=== PATIENT | male | born 1955 | race Caucasian/White ===

== ENCOUNTER 2017-01-12 14:35 | Inpatient (IN) ==
[2017-01-12] MEDS ORDERED: Aspirin 325 MG TABLET PO ONE (15:00)
[2017-01-12] MEDS ORDERED: *HR* Ticagrelor 90 MG TABLET PO ONE (15:04)
--- NOTE | 2017-01-12 15:08 | Emergency Department Note ---
Disposition Clinical Impression: ST elevation myocardial infarction (STEMI) Disposition: Admitted As Inpatient Condition: Fair Forms: ED Satisfaction Letter Time of Disposition: 15:23 Chest Pain HPI - General Chief Complaint: ED Chest Pain Stated Complaint: chest pain, JAYDEN Time Seen by Provider: 01/12/17 14:59 Source: patient, family Limitations: no limitations Vital Signs Reviewed: Yes Nursing Notes Reviewed: Yes - History of Present Illness HPI Narrative: 61-year-old male presents with chest pain. Patient has a history of coronary artery disease with last stent placed in 2007. He has been noncompliant with his aspirin and Plavix. Yesterday evening he had the onset of centralized chest discomfort. He thought that it was gas and it went away after he took some Tums. He was outside working, but not doing anything very strenuous this morning at 12:30 and had a repeat of this chest pain. He said it was very heavy pressure-like feeling that was crushing in his chest. He got diaphoretic, nauseated and felt like he was going to pass out. He states he felt similar to this with his last CO. He has not taken any medication today and he states the pain has been consistent for the last 3 hours , so he decided to seek care. He also has a history of hypertension and does continue to smoke but is not compliant with any of his medications due to cost Severity scale (1-10): 8 - Related Data Allergies Allergy/AdvReac Type Severity Reaction Status Date / Time azithromycin [From Zithromax] AdvReac Unresponsiv Verified 01/12/17 14:36 e Constitutional: Denies: fever Eyes: Denies: vision change Cardiovascular: Reports: chest pain Respiratory: Reports: dyspnea. Denies: cough Gastrointestinal: Reports: nausea Musculoskeletal: Denies: back pain Integumentary: Denies: rash Neurological: Reports: weakness (all over). Denies: headache Chest Pain PMH - Past Medical History Medical history: Reports: hypertension, myocardial infarction Psychiatric history: Reports: no psych history - Social History Smoking Status: Current every day smoker Alcohol use: Reports: none Drug use: Reports: none Physical Exam - General Limitations: no limitations General appearance: alert, in no apparent distress - Head Head exam: atraumatic, normocephalic, normal inspection - Chest Chest inspection: Present: normal inspection, symmetric chest wall rise - Respiratory Respiratory exam: Present: normal lung sounds bilaterally - Cardiovascular Cardiovascular exam: Present: regular rate, normal rhythm, normal heart sounds - Abdominal Exam Abdominal exam: Present: soft, Non-Tender. Absent: tenderness, distention, guarding, rebound, rigidity - Extremities Exam Extremities exam: Present: normal inspection, full ROM. Absent: tenderness, pedal edema - Neurological Exam Neurological exam: Present: alert, oriented X3 - Psychiatric Psychiatric exam: Present: normal affect, normal mood - Skin Skin exam: Present: warm, dry, intact, normal color, other (Patient no longer diaphoretic) Course Course Narrative: 61-year-old male presenting with chest pain. EKG is concerning for developing CO in leads V4, V5 and V6. We will consult the on-call interventional S2 determine if any intervention is indicated at this time. Otherwise, we have started, labs, chest x-ray. We will repeat EKG. - Reevaluation(s) Reevaluation #1: Dr. Naidu to bedside. We will take to catheter lab now. We will add heparin and going down to catheter lab now. Time: 15:22 - Consultations Consultation #1: Spoke with on-call wash house supervisor, Dr Naidu. Discussed the patient and concerning symptoms, and borderline EKG. We will fax EKG to the Lasting Machine Operator Bed. We will go ahead and order aspirin, nitroglycerin and Brilinta. Will call us back if any intervention is noted. We will repeat EKG a few minutes to make sure this is not involving into an acute CO. Time: 15:05 Vital Signs Temperature 97.4 F L 01/12/17 14:36 Pulse Rate 80 01/12/17 14:36 Respiratory Rate 16 01/12/17 14:36 Blood Pressure 170/107 01/12/17 14:36 O2 Sat by Pulse Oximetry 98 01/12/17 14:36 Temperature 97.4 F L 01/12/17 14:36 Pulse Rate 81 01/12/17 15:20 Respiratory Rate 18 01/12/17 15:20 Blood Pressure 143/73 01/12/17 15:20 O2 Sat by Pulse Oximetry 95 01/12/17 15:20 Oxygen Delivery Oxygen Delivery Room Air Chest Pain - MDM Narrative Medical decision making narrative: I examined this patient and my medical decision-making was reviewed with the HIGH PRESSURE BOILER OPERATOR/PA/Advanced Practice Nurse/Resident Physician. I agree with the documented findings, disposition and treatment plan as described except to the extent set forth below. Patient seen and evaluated today by Dr. Garcia and myself, I agreed his evaluation and management plan, supervised care the patient 's stay. Patient comes in today with chest pain that he had diaphoresis earlier he is not diaphoretic now but still having pain. History CAD in the past. He does have elevation in his precordial leads. Not quite enough for true STEMI. We started off with nitroglycerin and we spoke with actor Naidu, he is on for cardiology, he has come down to see the patient, repeat EKG still has this elevations was taken to the Lasting Machine Operator Bed impression this time is ACS. Patient' s going to catheter lab still pending labs. Patient's critical care time x-ray separately billable procedures is 20 minutes per Chest X-Ray 01/12/17 14:39 IMPRESSION: No acute cardiopulmonary abnormality. D/ / Dwain Ley MD / Dwain Ley MD Interpreting Provider: Dwain Ley MD - Medical Records Medical records reviewed: Yes I reviewed the patient's medical records. - Lab Data Lab results reviewed: Yes I reviewed the patient's lab results. Result diagrams: 01/12/17 15:05 Lab Results 01/12/17 Range/Units 15:05 WBC 12.9 H (4.3-11.1) K/mcL RBC 5.96 H (4.19-5.50) M/mcL Hgb 17.5 H (12.9-16.9) g/dL Hct 53.1 H (37.5-50.1) % MCV 89.1 (83.0-100.0) fL MCH 29.4 (28.0-33.3) pg MCHC 33.0 (31.6-35.5) g/dL RDW 13.6 (11.5-14.5) % Plt Count 232 (140-400) K/mcL MPV 10.7 (9.4-12.4) fL Immature Gran % 0.5 (0-4) % Seg Neutrophils % 78.0 % Lymphocytes % 13.5 % Monocytes % 6.7 % Eosinophils % 1.0 % Basophils % 0.3 % Neutrophils # 10.1 H (1.6-8.9) K/mcL Lymphocytes # 1.8 (0.6-4.6) K/mcL Monocytes # 0.9 (0.0-1.3) K/mcL Eosinophils # 0.1 (0.0-0.6) K/mcL Basophils # 0.0 (0.0-0.2) K/mcL - Radiology Data Radiology results reviewed: Yes I reviewed the patient's radiology results. - EKG Data EKG attestation: Yes I reviewed and interpreted this EKG. EKG results narrative: Sinus rhythm, rate 68, AZ interval 175, QRS 107, QTC 410, left axis deviation, [address] segment elevation in lead V5 and V6.
[2017-01-12] MEDS: Nitroglycerin 0.4 MG TAB.SUBL SL PRN ×3 (15:15→15:25)
[2017-01-12 15:16] LABS: Basophils % 0.3 %; Eosinophils # 0.1 K/mcL (0.0-0.6); Hematocrit 53.1 % (37.5-50.1); Hemoglobin 17.5 g/dL (12.9-16.9); Immature Granulocytes % 0.5 % (0-4); Lymphocytes # 1.8 K/mcL (0.6-4.6); Lymphocytes % 13.5 %; Mean Corpuscular Hemoglobin 29.4 pg (28.0-33.3); Mean Corpuscular Volume 89.1 fL (83.0-100.0); Mean Platelet Volume 10.7 fL (9.4-12.4); Monocytes # 0.9 K/mcL (0.0-1.3); Monocytes % 6.7 %; Neutrophils # 10.1 K/mcL (1.6-8.9); Platelet Count 232 K/mcL (140-400); Red Blood Count 5.96 M/mcL (4.19-5.50); Red Cell Distribution Width 13.6 % (11.5-14.5)
[2017-01-12 15:20] LABS: INR 1.1; Prothrombin Time 11.6 Seconds (9.4-12.1)
[2017-01-12] MEDS ORDERED: *HR* Heparin 5,000 UNIT/ML VIAL IVP ONE (15:22)
[2017-01-12 15:23] LABS: Activated Partial Thrombo Time 31.6 Seconds (26.0-36.0)
[2017-01-12 15:28] LABS: BUN/Creatinine Ratio 12 (6-26); Blood Urea Nitrogen 13 mg/dL (8-26); Calcium 10.5 mg/dL (8.6-10.8); Carbon Dioxide 25 mEq/L (19-29); Chloride 101 mEq/L (98-109); Glucose 111 mg/dL (70-99); Osmolality,Calculated 285 (280-300); Potassium 3.6 mEq/L (3.5-4.5); Sodium 137 mEq/L (136-145); eGFR For African Americans > 60 (> 60); eGFR For Non-African Americans > 60 (> 60)
[2017-01-12] MEDS ORDERED: 0.9 % Sodium Chloride 1,000 ML IVC ONE (15:28)
[2017-01-12] MEDS ORDERED: Heparin 25,000 UNIT/500 ML D5W 25,000 UNIT/500 ML MLS IVC SCH (15:30)
[2017-01-12] MEDS ORDERED: Ondansetron 4 MG/2 ML VIAL IVP PRN (15:34)
[2017-01-12] MEDS ORDERED: *HR* Morphine 2 MG/ML SYRINGE IVP PRN (15:34)
[2017-01-12] MEDS ORDERED: Heparin 1,000 UNITS/500 mL NS 500 ML ONE (15:40)
[2017-01-12] MEDS ORDERED: Nitroglycerin 1,000 MCG/10 ML VIAL IV ONE (15:40)
[2017-01-12] MEDS ORDERED: Verapamil 5 MG/2 ML VIAL ONE (15:40)
[2017-01-12] MEDS ORDERED: *HR* Heparin 10,000 UNIT/10 ML VIAL ONE (15:40)
[2017-01-12] MEDS ORDERED: 0.9 % Sodium Chloride 1,000 ML ONE ×2 (15:40→15:53)
--- NOTE | 2017-01-12 15:42 | Pre-Sedation Evaluation ---
Pre-sedation evaluation - Pre-sedation checklist Date of procedure: 01/12/17 Procedure: [facility] Recent Vitals: Last Vital Signs Temp 97.4 F L 01/12/17 14:36 Pulse 75 01/12/17 15:39 Resp 16 01/12/17 15:39 BP 119/78 01/12/17 15:39 Pulse Ox 98 01/12/17 15:39 H&P (including ROS) documented in medical record: Yes Previous reaction to sedatives/anesthetics: No Dietary Status: NPO after Midnight Airway Assessment: Patient can open mouth completely, TMJ function normal ASA Classification *see protocol: CLASS II-Mild systemic disease Plan of Care: Pt appropriate candidate for procedure/moderate/conscious sedation , Risks/benefits of procedure/sedation discussed w/ patient/family
--- NOTE | 2017-01-12 15:45 | Cardiology History & Physical ---
Date of Encounter: 01/12/17 Time of Encounter: 15:40 Assessment and Plan (1) ST elevation myocardial infarction (STEMI) Status: Acute Aspirin, brilinta, heparin given in ED. Emergent LHC to delineate any coronary disease amenable for intervention. A/R/B discussed with him and he wishes to proceed. EF assessment will be completed and cardiac rehab consulted. The assessment and plan as outlined above was discussed with the patient and/or family members who expressed understanding and agreement. All questions were answered. Qualifiers: Involved coronary artery: other coronary artery Qualified Code(s): I21.29 - ST elevation (STEMI) myocardial infarction involving other sites History of Present Illness Chief complaint: chest pain HPI: Mr. Moe is a 61 year old male with history of CAD s/p PCI LAD and RCA with last LHC 2012 presents with chest discomfort, moderate intensity, starting around 1230 today which has minimally improved with aspirin and nitroglycerin. It was associated with diaphoresis. It is similar to his previous anginal symptoms. 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 Past Med Surg Social Fam HX - Past Medical History Medical history: hypertension, myocardial infarction Psychiatric history: no psych history - Social History Smoking Status: Current every day smoker Smokeless Tobacco Status: No Alcohol use: none Drug use: none Medications and Allergies No Known Home Drugs 01/12/17 [History] Allergies azithromycin [From Zithromax] Adverse Reaction (Verified 01/12/17 14:36) Unresponsive All Systems Review: A 10-system review of systems was performed and is negative for pertinent findings except as documented above in the HPI. - Constitutional Constitutional: no chills, no fever(s) - EENT Eyes: no blurred vision, no loss of vision Nose, mouth and throat: no bleeding gums, no epistaxis - Cardiovascular Cardiovascular: chest pain at rest, chest pain with exertion - Respiratory Respiratory: no hemoptysis, no wheezing - Gastrointestinal Gastrointestinal: no hematemesis, no hematochezia - Genitourinary Genitourinary: no dysuria, no hematuria - Musculoskeletal Musculoskeletal: no back pain, no myalgias - Integumentary Integumentary: no erythema, no rash - Neurological Neurological: no focal weakness, no syncope - Psychiatric Psychiatric: no anxiety, no depression - Hematological/Lymphatic Hematologic/Lymphatic: no easy bleeding, no easy bruising Physical Examination Vital Signs, Last 4 Hours Temp Pulse Resp BP Pulse Ox 01/12/17 15:39 75 16 119/78 98 01/12/17 15:30 90 18 139/76 97 01/12/17 15:20 81 18 143/73 95 01/12/17 15:00 74 16 182/131 100 01/12/17 14:36 97.4 F L 80 16 170/107 98 General: Conversant, Other (mild distress) HEENT: Atraumatic Neck: No JVD Cardiac: Reg Rate and Rhythm Lungs: Normal Breath Sounds Neuro: Alert and responsive Abdomen: Soft Skin: No rashes noted on visualized skin Extremities: No Edema Results 01/12/17 15:05 01/12/17 15:05 Lab Results 01/12/17 01/12/17 01/12/17 15:05 15:05 15:05 WBC 12.9 H Hgb 17.5 H Hct 53.1 H Plt Count 232 INR 1.1 APTT 31.6 Sodium 137 Potassium 3.6 Chloride 101 Carbon Dioxide 25 BUN 13 Creatinine 1.09 Glucose 111 H Calcium 10.5 - EKG Interpretation EKG results cardiology: personally reviewed, sinus rhythm (lateral current of injury)
[2017-01-12] MEDS ORDERED: *HR* Midazolam HCl 2 MG/2 ML VIAL ONE (15:52)
[2017-01-12] MEDS ORDERED: *HR* FentaNYL (PF) 100 MCG/2 ML VIAL ONE (15:53)
--- NOTE | 2017-01-12 15:58 | Event Note ---
Date of Encounter: 01/12/17 Time of Encounter: 15:35 - Cardiology Event Note STEMI alert initiated off of second EKG, concerning for lateral current of injury. Patient continues to be symptomatic.
[2017-01-12] MEDS ORDERED: Tirofiban 5 MG/100ML 5 MG/100 ML BAG IV ONE (16:37)
[2017-01-12] MEDS ORDERED: Tirofiban 12.5 MG/250ML 12.5 MG/250 ML BAG IVC SCH (16:45)
--- NOTE | 2017-01-12 16:56 | Invasive Diagnostic Lab Proc ---
Name: Neville Moe Date of Study: 01/12/2017 Date: 1955 Ht: 76.0in Medical Record#: [id number] Age: 61 Wt: 220.02lb Gender: Male BSA: 2.31 Order #: [id number] BMI: 26.79 Physicians Procedure Physician: Usama Naidu MD, [facility] Referring MD: Referring MD: Staff Name Position Time In Sites, Madalyn RT (R) Monitor 03:57 PM Dwain Acevedo RT (R) Scrub 03:57 PM Anuradha Wiggins RN Market Specialist 03:57 PM Indications Indication STEMI Procedures Performed Procedure PRQ CARD REVASC WI 1 VSL L HRT ARTERY/VENTRICLE ANGIO Pre-Procedure Checklist Informed consent is complete signed and on chart. H\\T\\P is on chart. ID band is on and ID verified with patient. Patient NPO for procedure The procedure was described for the patient and questions were answered. ECG is on chart. Plan of Care Patient will tolerate the procedure without complications. Adequate level of comfort will be maintained. Hemodynamics will remain stable Patient will recover from procedure without complications. Respiratory function will be maintained. Cardiac rhythm will remain stable. Patient temperature will be maintained. Patient and/or family have verbalized understanding of the procedure. Patient Education Intravenous Access Time IV Size Location DC'd Fluid/Drip Rate Units RN 18g 1 1/4" Patent On Arrival Lt Antecubital 0.9NaCl 25 ml/hr Anuradha Wiggins RN 18g 1 1/4" Patent On Arrival Rt Antecubital Anuradha Wiggins RN Allergies NKDA azithromycin Vital Signs Time BP (mmHg) HR (bpm) O2 Sat. RR (bpm) LOC 04:05 PM 139 / 85 63 96 % 12 04:08 PM 137 / 82 61 98 % 9 04:11 PM 139 / 77 64 100 % 7 04:14 PM 138 / 75 63 98 % 20 04:17 PM 134 / 72 63 98 % 20 04:20 PM 114 / 69 69 98 % 17 04:23 PM 124 / 67 52 98 % 19 04:26 PM 116 / 70 66 98 % 18 04:29 PM 118 / 73 79 98 % 18 04:32 PM 125 / 64 63 99 % 16 04:35 PM 124 / 73 60 99 % 04:38 PM 116 / 73 % Procedural Medications Time Medication Dose Units Method Given By 03:58 PM Oxygen 2 L/min nasal cannula Anuradha Wiggins RN 04:05 PM Lidocaine 2% 20 ml Subcutaneous Usama Naidu MD, FACC 04:07 PM Versed 2 mg Intravenous Anuradha Wiggins RN 04:07 PM Fentanyl 25 mcg Intravenous Anuradha Wiggins RN 04:10 PM Fentanyl 50 mcg Intravenous Anuradha Wiggins RN 04:21 PM Heparin 2000 units Intravenous Anuradha Wiggins RN 04:39 PM Aggrastat Bolus: 50 ml Intravenous Anuradha Wiggins RN 04:39 PM Aggrastat 5mg/100ml 18 ml Intravenous Anuradha Wiggins RN ASA Classification: Emergent Procedure: ASA score is assumed Karthikeyan Score Preprocedure Postprocedure Activity 2- Moves 4 extremities sustained head lift Activity 2- Moves 4 extremities sustained head lift Circulation 2- SBP +/= 20 points of pre-anesthetic level Circulation 2- SBP +/= 20 points of pre-anesthetic level Consciousness 2- Awake and alert oriented x 3 Consciousness 2- Awake and alert oriented x 3 O2 Saturation 2- Able to maintain O2 satruation of 92% on room air O2 Saturation 2- Able to maintain O2 satruation of 92% on room air Respiratory 2- Able to deep breathe and cough well Respiratory 2- Able to deep breathe and cough well Total Score 10 Total Score 10 Contrast Agent: Isovue Diagnostic Contrast: 142 ml Total Contrast: 142 ml Fluoro Dose: 514 mGy Activated Clotting Time Time Seconds to Clot 04:21 PM 205 04:32 PM 217 Procedure Log Time Note Enter By 03:54 PM CathStat 03:57 PM 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 to general labor forklift operator 1 at 15:57 tsites 03:57 PM Madalyn Velazquez RT (R) Position: Monitor Time in: 15:57 tsites 03:57 PM Dwain Acevedo RT (R) Position: Scrub Time in: 15:57 tsites 03:57 PM Anuradha Wiggins RN Position: Market Specialist Time in: 15:57 tsites 03:58 PM Patient charges- Angio tray pack, Navilyst 3mm J, Pulse Oximetry and ACIST tubing and transducer tsites 03:58 PM Case Delayed No tsites 03:58 PM Meet and greet completed tsites 03:58 PM Time: 15:58 Oxygen on at 2 L/min per nasal cannula by Anuradha Wiggins RN tsites 04:04 PM Procedure start 16:04 tsites 04:04 PM Time out performed according to hospital policy tsites 04:04 PM Vitals capture started with the following parameters, Patient=Adult, Interval=3 min, Initial Ssgiemfo=530 mmHg, Deflation Rate=5 mmHg, Cuff placed on Right Arm 04:04 PM Recorded ECG: HR=65 Condition=Condition 1 04:05 PM Time: 16:06 20 ml Lidocaine 2% to right groin Subcutaneous Given by Usama Naidu MD, [facility] tsites 04:05 PM Clinical Presentation: STEMI or equivalent tsites 04:05 PM Access obtained by percutaneous puncture. 6Fr 10cm Terumo [place] sheath placed in right Femoral artery. [id number] tsites 04:05 PM PCI Status Emergency tsites 04:05 PM PCI Indication: Immediate PCI for STEMI tsites 04:05 PM HR=63 bpm, QKAB=685/85 mmhg, SpO2=96 %, Resp=12 B/min 04:05 PM 6Fr CLS 3.5 Runway guide catheter was used to cannulate the PCI vessel successfully. reused? No tsites 04: PM 0.035 145cm Navilyst 3mmJ wire [id number] tsites 04:06 PM Inflation device was opened. tsites 04:07 PM Recorded Pressure: Ao, HR=70, Condition=Condition 1 (Aorta) Ao 118/86/101 04:07 PM Time: 16:07 Versed 2 mg Intravenous Given by Anuradha Wiggins RN ts 04:08 PM Time: 16:07 Fentanyl 25 mcg Intravenous Given by Anuradha Wiggins RN tsites 04:08 PM HR=61 bpm, VWFP=108/82 mmhg, SpO2=98 %, Resp=9 B/min 04:08 PM 2.0 mm x 12 mm Emerge Monorail balloon across target lesion- successful. reused? No tsites 04:08 PM Balloon inflated @ 10 saeed for 12 seconds tsites 04:08 PM Balloon inflated @ 14 saeed for 10 seconds tsites 04:10 PM Time: 16:10 Fentanyl 50 mcg Intravenous Given by Anuradha Wiggins RN tsites 04:10 PM Balloon catheter removed intact. tsites 04:10 PM 2.5mm x 20mm Synergy drug-eluting stent across target lesion- successful Lot #[id number] tsites 04:11 PM Stent deployed @ 12 saeed for 14 seconds tsites 04:11 PM HR=64 bpm, SQWU=322/77 mmhg, GxX4=204 %, Resp=7 B/min 04:13 PM Stent delivery system removed intact. tsites 04:13 PM 2.75 mm x 15mm NC Trek Rx balloon across target lesion- successful. reused? No tsites 04:13 PM Recorded Pressure: Ao, HR=75, Condition=Condition 1 (Aorta) Ao 116/95/105 04:13 PM Balloon inflated @ 16 saeed for 18 seconds tsites 04:14 PM Balloon inflated @ 16 saeed for 9 seconds tsites 04:14 PM HR=63 bpm, KCMV=909/75 mmhg, SpO2=98.0 %, Resp=20 B/min 04:14 PM Coronary Dominance: right tsites 04:14 PM Lesion found in Proximal LAD. Pre Stenosis: 60 Pre GREGORY Flow: tsites 04:14 PM Lesion found in 1st Marginal. Pre Stenosis: 100 Pre GREGORY Flow: tsites 04:15 PM Balloon inflated @ 18 saeed for 14 seconds tsites 04:17 PM HR=63 bpm, GMTV=180/72 mmhg, SpO2=98 %, Resp=20 B/min 04:18 PM Proximal Left Anterior Descending Coronary Artery with 60% stenosis. If graft is supplying this territory, 0 % stenosis. tsites 04:18 PM Circumflex, Obtuse Marginal, Left Posterior Descending, and Left Posterolateral Coronary Arteries with 100 % stenosis. If graft is supplying this area, 0 % stenosis tsites 04:18 PM ACT drawn tsites 04:20 PM HR=69 bpm, JKQF=390/69 mmhg, SpO2=98 %, Resp=17 B/min 04:20 PM 2.0x12 balloon reinserted tsites 04:21 PM At 16:21 the ACT was 205 seconds. tsites 04:22 PM Time: 16:21 Heparin 2000 units Intravenous Given by Anuradha Wiggins RN tsites 04:22 PM Balloon inflated @ 6 saeed for 9 seconds tsites 04:23 PM HR=52 bpm, JRCL=214/67 mmhg, SpO2=98 %, Resp=19 B/min 04:23 PM Balloon catheter removed intact. tsites 04:23 PM Guide wire removed intact. tsites 04:24 PM wire reinserted catheter removed tsites 04:24 PM 5Fr FR 4 catheter inserted over the wire [facility] tsites 04:25 PM RCA angiography performed in multiple views. tsites 04:26 PM Recorded Pressure: Ao, HR=74, Condition=Condition 1 (Aorta) Ao 96/83/90 04:26 PM HR=66 bpm, TYKO=198/70 mmhg, SpO2=98.0 %, Resp=18 B/min 04:26 PM wire reinserted catheter removed tsites 04:26 PM 5Fr Pigtail catheter inserted over the wire DNC tsites 04:27 PM Catheter selectively placed in left ventricle tsites 04:27 PM Bolus angiogram of left Ventricle complete: 10 ml/sec for a total of 30 mls tsites 04:27 PM Recorded Pressure: LV, HR=67, Condition=Condition 1 (Left Ventricle) LV 102/20/24 04:28 PM Recorded Pressure: LV, Ao, HR=64, Condition=Condition 1 (Left Ventricle) LV 111/25/27, (Aorta) Ao 95/67/80 04:28 PM wire reinserted catheter removed tsites 04:28 PM Bolus angiogram of right Femoral complete: 2 ml/sec for a total of 4 mls tsites 04:29 PM HR=79 bpm, JYRU=592/73 mmhg, SpO2=98.0 %, Resp=18 B/min 04:30 PM ACT drawn tsites 04:30 PM Procedure completed at 16:30 tsites 04:30 PM Sign out completed: Radiation Dose 514 mGy Fluoro Time: 5.1 Isovue 370 - 500ml contrast 142 ml given by Usama Naidu MD, [facility]. Complications: NoneCardiac Rehab Consult needed: YesConfirmed administered medications: Yes tsites 04:30 PM Isovue 370 - 500ml,1 Bottle(s) used. tsites 04:30 PM Sheath left in place to be pulled on floor/holding areaV+Pad tsites 04:32 PM Post ECG NSR tsites 04:32 PM HR=63 bpm, DJNU=789/64 mmhg, SpO2=99 %, Resp=16 B/min 04:32 PM Post Blood Pressure 125/64 tsites 04:32 PM 16:32 Post Pulses Bilateral DP \\T\\ PT 1+ tsites 04:33 PM At 16:32 the ACT was 217 seconds. tsites 04:33 PM Information taught Cardiac Cath and PCI tsites 04:33 PM Education needs Procedure, Plan of Care, and Responsibilities of Patient in Care tsites 04:33 PM Learning barriers :None tsites 04:33 PM Education Methods Verbal tsites 04:33 PM Education evaluation Able to repeat information tsites 04:33 PM Site status No bleeding/hematoma - Rt Groin as reported by Dwain Acevedo RT (R) at 16:33 tsites 04:33 PM Opsite applied tsites 04:33 PM Plavix, Effient or Brilinta given Yes in ER tsites 04:33 PM Delay to floor No tsites 04:33 PM no family at this time tsites 04:35 PM HR=60 bpm, AAEL=346/73 mmhg, SpO2=99 % 04:36 PM Patient out of room: 16:36 tsites 04:38 PM UWPS=874/73 mmhg 04:39 PM Report given to Anuradha MALAVE Pt taken to ICU Room #1. 16:39 tsites 04:39 PM Time: 16:39 Aggrastat Bolus: 50 ml Intravenous Given by Anruadha Wiggins RN Brady pump tsites 04:40 PM Time: 16:39 Aggrastat 5mg/100ml 18 ml Intravenous Given by Anuradha Wiggins RN Brady pump tsites 04:41 PM Vitals capture stopped. 04:46 PM Lesion found in 1st Diagonal. Pre Stenosis: 100 Pre GREGORY Flow: 0: No Flow/No perfusion tsites 04:48 PM Lesion found in Proximal RCA. Pre Stenosis: 80 Pre GREGORY Flow: tsites 04:50 PM Right Coronary, Right Posterior Descending Arteries with Right Posterolateral and Acute Marginal branches with 80 % stenosis. If graft is supplying this area, 0 % stenosis tsites 04:51 PM Mid/Distal Left Anterior Descending Coronary Artery and diagonal branches with 100% stenosis. If graft is supplying this area, 0 % stenosis tsites Complications Complication None Hemodynamics Pressures Site Systolic/A Wave Diastolic/V Wave Mean AO 118 86 101 AO 116 95 105 AO 96 83 90 LV 102 20 24 LV 111 25 27 AO 95 67 80 Post Procedure Information Blood Pressure: 125/64 mmHg Rhythm: NSR Post procedural instructions were given Closure Device Time Device Success/Fail 01/12/2017 4:15:00 PM Manual Compression Site Checks Time Location Status Staff Sheath In? Note 04:33 PM Rt Groin No bleeding/hematoma Dwain Acevedo RT (R) Pulses Time Site Pre-Procedure Post-Procedure Note 4:32:00 PM Bilateral DP \\T\\ PT 1+ 1+ Updated by Madalyn Sites, RT (R) on 01/12/2017 4:51:20 PM Madalyn Sites, RT electronically signed on 01/12/2017 4:51:52 PM with status of Final
[2017-01-12] MEDS ORDERED: *HR* Atropine Sulfate 1 MG/10 ML SYRINGE ONE (18:59)
[2017-01-12] MEDS: *HR* Ticagrelor 90 MG TABLET PO SCH (20:49)
[2017-01-13 06:43] LABS: Basophils % 0.3 %; Eosinophils # 0.1 K/mcL (0.0-0.6); Eosinophils % 0.7 %; Hematocrit 47.1 % (37.5-50.1); Immature Granulocytes % 0.4 % (0-4); Lymphocytes # 2.1 K/mcL (0.6-4.6); Lymphocytes % 15.2 %; Mean Corpuscular HGB Conc 33.1 g/dL (31.6-35.5); Mean Corpuscular Hemoglobin 29.5 pg (28.0-33.3); Mean Platelet Volume 11.2 fL (9.4-12.4); Monocytes # 1.1 K/mcL (0.0-1.3); Monocytes % 8.4 %; Neutrophils # 10.1 K/mcL (1.6-8.9); Platelet Count 220 K/mcL (140-400); Red Blood Count 5.29 M/mcL (4.19-5.50); Red Cell Distribution Width 13.9 % (11.5-14.5)
[2017-01-13 06:44] LABS: Alanine Aminotransferase 59 Units/L (0-55); Albumin 3.7 g/dL (3.5-5.0); Albumin/Globulin Ratio 1.2 (1.1-2.2); Alkaline Phosphatase 81 Units/L (38-126); Aspartate Amino Transferase 224 Units/L (5-34); BUN/Creatinine Ratio 10 (6-26); Bilirubin,Total 0.8 mg/dL (0.2-1.2); Blood Urea Nitrogen 11 mg/dL (8-26); Calcium 9.8 mg/dL (8.6-10.8); Carbon Dioxide 24 mEq/L (19-29); Chloride 105 mEq/L (98-109); Globulin 3.1 g/dL (2.4-3.5); Glucose 106 mg/dL (70-99); Osmolality,Calculated 284 (280-300); Potassium 4.2 mEq/L (3.5-4.5); Sodium 137 mEq/L (136-145); Total Protein 6.8 g/dL (6.0-8.3); eGFR For African Americans > 60 (> 60); eGFR For Non-African Americans > 60 (> 60)
[2017-01-13 06:46] LABS: Hemoglobin 15.6 g/dL (12.9-16.9)
--- NOTE | 2017-01-13 06:54 | Invasive Diagnostic Lab ---
Name: Neville Moe Date of Study: 01/12/2017 Date: 1955 Ht: 193.0 cm /76.0 in Medical Record#: [id number] Age: 61 Wt: 99.8 kg / 220.02 lb Account/Order#: [id number] Gender: Male BSA: 2.31 Order #: [id number] Fluoro Dose: 514 mGy BMI: 26.79 Procedure Physician: Usama Naidu MD, [facility] Referring MD: Referring MD: Procedures Performed: PCI of Acute VA (OM) LEFT HEART CATH PTCA of additional vessel (LAD) Indications: STEMI Impressions: There is severe two vessel coronary artery disease. There is moderate LV Dysfunction EF 35% Patient had successful PTCA/Drug-Eluting Stent placement in the OM. Recommendations: Optimal medical therapy of patient's disease. Aggressive risk factor modification. Patient being referred for cardiac rehab. Patient recommended for staged PCI for the RCA after outpt followup History/Risk Factors: Hypertension Current/Recent Smoker Prior VA Previous PCI Procedure Access obtained in the right Femoral artery by percutaneous puncture Patient had successful PTCA/Drug-Eluting Stent placement in the OM. Complications: None Contrast: Isovue 142ml Closure Device: Manual Compression Hemodynamics: Pressures Site Systolic/ A Wave Diastolic/ V Wave End Diastolic/ Mean HR AO 118 86 101 70 AO 116 95 105 75 AO 96 83 90 74 LV 102 20 24 67 LV 111 25 27 61 AO 95 67 80 70 LV Ventriculography Ejection Method: LV Gram Ejection Fraction: 35% Wall Motion: STACK Anterobasal Severe Hypokinesis Anterolateral Severe Hypokinesis Apical: Normal Inferoapical Normal Inferobasal Mild hypokinesis Coronary Dominance: right Lesion Findings/Interventions * Left Main Coronary Artery The LMCA is angiographically free of disease. * Left Anterior Descending The Left Anterior Descending has right to left collaterals. There is a 60% stenosis in the ostial-Proximal LAD. There is a 100% stenosis in the distal LAD. The lesion has a GREGORY flow of 0. Wired the vessel and PTCA with 2.0mm balloon without improvement in flow. This lesion appears to be a LIP CUTTER. Patient stable at this time, no further intervention attempted. * Circumflex There is a 20 mm long, 100% stenosis in the 1st Marginal. The lesion has a GREGORY flow of 0 and has no thrombus present. An intervention was performed on the 1st Marginal with a final stenosis of 0%. There were no lesion complications. Mid circumflex 20% stenosis * Right Coronary Artery There is a 80% stenosis in the Proximal RCA. Busch hook. Distal PDA 90% stenosis - small vessel. Interventional Device(s) Vessel Segment Type Name Diameter (mm) Length (mm) 1st Marginal Balloon Emerge Monorail 2 12 1st Marginal Drug Eluting Stent Synergy 2.5 20 1st Marginal Balloon NC Trek Rx 2.75 15 Updated by Madalyn Velazquez RT (R) on 01/12/2017 4:52:03 PM Usama Naidu MD, FACC electronically signed on 01/13/2017 6:47:25 AM with status of Final
[2017-01-13] MEDS: *HR* Ticagrelor 90 MG TABLET PO SCH ×2 (07:44→21:01)
[2017-01-13] MEDS ORDERED: Aspirin 81 MG TAB.CHEW PO SCH (09:00)
--- NOTE | 2017-01-13 10:01 | Cardiology Progress Note ---
Date of Encounter: 01/13/17 Time of Encounter: 10:00 Assessment and Plan (1) ST elevation myocardial infarction (STEMI) Current Visit: Yes Status: Acute s/p PCI OM. Asymptomatic. Change to plavix as patient cannot afford brilinta. Continue statin and BB. The assessment and plan as outlined above was discussed with the patient and/or family members who expressed understanding and agreement. All questions were answered. Qualifiers: Involved coronary artery: other coronary artery Qualified Code(s): I21.29 - ST elevation (STEMI) myocardial infarction involving other sites (2) Leukocytosis Current Visit: Yes Status: Acute likely stress reaction, continue to monitor Qualifiers: Leukocytosis type: unspecified Qualified Code(s): D72.829 - Elevated white blood cell count, unspecified (3) CHF (congestive heart failure), NYHA class I Current Visit: Yes Status: Acute Euvolemic. BB/ACEI Qualifiers: Congestive heart failure type: systolic Congestive heart failure chronicity : chronic Qualified Code(s): I50.22 - Chronic systolic (congestive) heart failure Discussion w patient/family: The assessment and plan as outlined above was discussed with the patient and/or family members who expressed understanding and agreement. All questions were answered. Thank you for involving us in the care of your patient. Please call with any questions. Subjective Principal diagnosis: stemi Interval history: No issues overnight. No chest/jaw/arm discomfort nor dyspnea. No syncope. No access site discomfort Objective Vital Signs, Last 4 Hours Temp Pulse Resp BP Pulse Ox 01/13/17 08:05 97.6 F 01/13/17 07:54 74 01/13/17 07:48 74 18 107/79 96 General: Conversant, No Apparent Distress HEENT: Atraumatic, Normocephaly Neck: No JVD Cardiac: Reg Rate and Rhythm, Normal S1 and S2 Lungs: Normal Breath Sounds Neuro: Alert and responsive Abdomen: Soft Skin: No rashes noted on visualized skin Musculoskeletal: No Chest Wall Tenderness Extremities: No Edema Results 01/13/17 06:03 01/13/17 06:03 Lab Results 01/13/17 01/13/17 06:03 06:03 WBC 13.5 H Hgb 15.6 D Hct 47.1 Plt Count 220 Sodium 137 Potassium 4.2 Chloride 105 Carbon Dioxide 24 BUN 11 Creatinine 1.09 Glucose 106 H Calcium 9.8 Total Bilirubin 0.8 AST 224 H ALT 59 H Alkaline Phosphatase 81 Consult Discharge Plan - Plan Referrals: NO,PCP [Primary Care Provider] -
[2017-01-13] MEDS ORDERED: *HR* Morphine 2 MG/ML SYRINGE IVP PRN (10:07)
[2017-01-13] MEDS ORDERED: Ondansetron 4 MG/2 ML VIAL IVP PRN (10:07)
[2017-01-13] MEDS ORDERED: Nitroglycerin 0.4 MG TAB.SUBL SL PRN (10:07)
--- NOTE | 2017-01-13 16:15 | Electrocardiograph Report ---
[address] [place], [place] [address] Test Date: 2017-01-12 Pat Name: Neville Moe Department: 102 Room: 01 Gender: M Surgery Manager: : 1955 Requested By: Héctor Garcia Order Number: [id number] Reading MD: Latrell Deluna Measurements Intervals [place] Rate: 68 P: 62 VT: 185 QRS: -19 QRSD: 98 T: 72 QT: 381 QTc: 398 Interpretive Statements SINUS RHYTHM WITH SINUS ARRHYTHMIA LATERAL INFRACT, POSSIBLY ACUTE Electronically Signed On 01-13-2017 16:14:00 EDT by Latrell Deluna
--- NOTE | 2017-01-13 16:15 | Electrocardiograph Report ---
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
--- NOTE | 2017-01-13 16:20 | Electrocardiograph Report ---
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
[2017-01-14 08:17] VITALS: BP 109/83
[2017-01-14] MEDS: *HR* Ticagrelor 90 MG TABLET PO SCH (08:18)
[2017-01-14] MEDS ORDERED: Aspirin 81 MG TAB.CHEW PO SCH (09:00)
[2017-01-14] MEDS ORDERED: Metoprolol XL (24 HR) Succ 25 MG TAB.ER.24H PO SCH ×2 (09:00)
--- NOTE | 2017-01-14 09:59 | Discharge Summary ---
Date of Encounter: 01/14/17 Time of Encounter: 09:00 - Discharge Diagnosis (1) ST elevation myocardial infarction (STEMI) Priority: Primary Status: Acute Comments: Acute STEMI at admisison, underwent LHC with ROBY placed. - Discharge Medications Prescriptions: Nitroglycerin 0.4 mg SL Q5MIN PRN #14 tab.subl PRN Reason: Chest Pain Clopidogrel [Plavix] 75 mg PO DAILY #30 tablet Lisinopril [Zestril] 2.5 mg PO DAILY #30 tablet Metoprolol XL (24 HR) Succ [Toprol Xl] 25 mg PO DAILY #30 tab.er.24h Rosuvastatin [Crestor] 40 mg PO HS #30 tablet Home Medications: Aspirin 81 mg PO DAILY tab.chew 01/14/17 [Rx] Clopidogrel [Plavix] 75 mg PO DAILY #30 tablet 01/14/17 [Rx] Lisinopril [Zestril] 2.5 mg PO DAILY #30 tablet 01/14/17 [Rx] Metoprolol XL (24 HR) Succ [Toprol Xl] 25 mg PO DAILY #30 tab.er.24h 01/14/17 [ Rx] Nitroglycerin 0.4 mg SL Q5MIN PRN #14 tab.subl 01/14/17 [Rx] Rosuvastatin [Crestor] 40 mg PO HS #30 tablet 01/14/17 [Rx] Allergies/Adverse Reactions: Allergies azithromycin [From Zithromax] Adverse Reaction (Verified 01/12/17 14:36) Unresponsive Date of admission: 01/12/17 15:59 Primary care physician: PCP NO Discharging clinician: Britany Guan Anticipated date of discharge: 01/14/17 - Patient Status Disposition: Home, Self-Care Condition: Good Functional capacity at discharge: independent ambulation Overall status at discharge: patient is progressing back to baseline - Discharge Instructions Follow Up With: NO,PCP [Primary Care Provider] - Additional Instructions: RISK FACTORS: STOP SMOKING: If you smoke, STOP. Smoking or tobacco use significantly increases your risk of heart disease because nicotine causes the arteries to narrow or constrict. It also causes fats to stick to the artery. Your chances of having a heart attack are greatly increased if you continue to smoke. For more information, call the education line for smoking cessation 1-416-JUEKBQR EAT A LOW FAT/CHOLESTEROL/SODIUM DIET: This diet may help reduce your chances of having a heart attack. LIFTING: Avoid lifting anything more than 10 pounds for 5-7 days Prior to straining, laughing, sneezing and/or coughing, apply manual pressure directly over insertion site. ACTIVITY: You may walk or climb stairs as tolerated You can resume sexual activity as tolerated In general, you are encouraged to engage in a minimum of 30 minutes or more of moderate intensity physical activity, such as brisk walking, daily or at least 3 -4 times weekly BATHING Do not submerge the site into water (bath tub, hot tub, swimming pool) for 1 week. This can be a source for infection into the blood stream. You may shower after 24 hours SITE CARE: After 24 hours, you may remove the dressing and leave the site open to air. Keep the site clean and dry. Clean gently and pat dry. You can expect bruising and tenderness that gradually resolve within a week or two. Return to work as instructed per your physician Resume driving as instructed per physician Keep all scheduled follow up appointments Resume medications as instructed IMPORTANT: If prescribed a Platelet Aggregation Inhibitor such as, Plavix, Brilinta or Effient: Duration of therapy is minimum one year These medications are often used in combination with Aspirin in prevention of future heart attacks Never discontinue unless consult with your Warehouse Selector STROKE (CVA) Risk factors for a stroke are: Age, cigarette smoking, diabetes, excessive alcohol consumption, family history, high blood pressure, overweight, physical inactivity, prior stroke, heart attack, diagnosis of carotid artery stenosis or other artery disease. Warning signs: Sudden numbness or weakness of the face, arm or leg; especially on one side of the body, sudden confusion, trouble speaking or understanding, sudden trouble seeing in one or both eyes, sudden trouble walking, dizziness, loss of balance or coordination, sudden severe headache with no cause. Call 911 or go to the Emergency Room. CONGESTIVE HEART FAILURE: If you have been diagnosed with Congestive Heart Failure (CHF) and your symptoms return, make an appointment with your physician Weigh yourself daily. Notify your physician if you have a weight gain of two or more pounds in one day or five or more pounds in one week. If you experience any difficulty breathing, please call 911 BLEEDING: Although the risk of bleeding is minimal, it can happen. If you have any bleeding from the site, apply firm pressure above the puncture site for 10-15 minutes. If the bleeding does not stop, continue manual pressure and call 911 Contact your physician if: You develop a fever greater than 101 degrees Fahrenheit Your site becomes reddened or has any drainage You have an increase in pain or burning at the site or if a large knot forms at the site. If you experience chest pain, shortness of breath, dizziness, or extreme tiredness, stop the activity and rest. Please notify your physicians office if you experience any of these symptoms and they are not relieved by rest please call 911! - Diet and Activity Activity: increase activity as tolerated Diet: low fat, low cholesterol, low salt diet - Hospital Course Hospital course: Mr. Moe is a 61 year old male who was admitted for acute STEMI. Patient underwent LHC with 60% stenosis proximal LAD, 100% distal LAD CONTAINER FILLER, 100% OM 1 with ROBY placed, 80% proximal RCA. Patient denies chest pain. Patient denies issues walking or using right leg. Right groin access site without hematoma or ecchymosis. Access site educated given to patient. Patient on asa, statin, beta yuni, and plavix. Patient educated on dual anti-platelet therapy for at least one year un-interrupted. Patient states understanding. Patient started on brilinta, switched to plavix today due to cost concerns. Patient was loaded with 300mg plavix. Echo performed while inpatient with LVEF 30-35%, global hypokinesis with regional variations, mild diastolic dysfunction, no significant valvular dysfunction, all anglin hypokinetic. Patient on beta yuni and antoni inhibitor was started today. Patient will continue to monitor HR and BP at home. Patient educated on tobacco cessation. Patient is being prepped for discharge today in stable condition. Follow up set. Time spent discussing smoking cessation with patient: 3 to 10 minutes - Time Spent with Patient Total time spent providing and/or coordinating discharge services: Less than 30 minutes Physical Examination Vital Signs, Last 4 Hours Temp Pulse Resp BP Pulse Ox 01/14/17 08:03 98.2 F 01/14/17 08:00 82 20 109/83 98 General: Conversant, No Apparent Distress HEENT: Atraumatic, Normocephaly, Mucus Membranes Moist Neck: No JVD, Normal carotid pulses Cardiac: Reg Rate and Rhythm, Normal S1 and S2, No Murmur Lungs: Normal Breath Sounds, No Wheeze, Rales, Rhonchi Neuro: Alert and responsive, No focal deficits noted Abdomen: Soft, Non-Tender Skin: No rashes noted on visualized skin, Other (Right groin access site without hematoma or ecchymosis. ) Musculoskeletal: No Chest Wall Tenderness Extremities: No Clubbing, No Cyanosis, No Edema, Normal Pulses
== END 2017-01-14 11:15 | disposition home or self-care (01) | DRG 174 ==
LOC: EMEROO 14:35 → ICNU 15:56
PROVIDERS: ADMIT Emergency Medicine; ATTEND Emergency Medicine